=== PATIENT | male | born 1980 | race Caucasian/White ===

== ENCOUNTER 2022-12-16 15:55 | Emergency (ER) | payer OTHER ==
[2022-12-16] MEDS ORDERED: HYDROcodone/Acetaminophen 10/325 mg Tablet ONE (17:06)
== END 2022-12-16 17:32 | disposition home or self-care (01) ==
LOC: BURERS 15:55
DX: M43.6 Torticollis (principal); F17.210 Nicotine dependence, cigarettes, uncomplicated